=== PATIENT | female | born 1990 | race Caucasian/White ===

== ENCOUNTER 2020-07-03 15:56 | Emergency (ER) | payer SELFPAY ==
[~2020-07-03] VITALS: Ht 165.1 cm; Wt 117.8 kg
[2020-07-03 15:56] VITALS: BP 114/83
--- NOTE | 2020-07-03 17:29 | PHYS DOC ---
Past History Past Medical History: Asthma Past Surgical History: No Surgical History Alcohol Use: Occasionally Adult General Chief Complaint Chief Complaint: DENTAL PROBLEM HPI HPI Patient is a 29-year-old female presents emergency department complaining of sores on her tongue and mouth for the past week. Patient states it does not seem to be getting any better however has not really getting any worse. Patient has not taken any medications for the pain. Patient states she does not have a primary care doctor because she cannot afford insurance. Patient denies any recent fever or chills, denies loss of taste or loss of smell. Patient denies rashes of her skin. Patient denies any recent immunizations. Patient states she is a cigarette smoker however denies drinking alcohol or consumption of illicit drugs. Patient states no one else in her home is having the same symptoms that she. Patient states she has no health history, does not take any medications, has no allergies to medications. Patient states she noticed it started after eating "lots of pineapple a week ago ". Patient denies any other physical complaints or physical concerns. Patient states her last menstrual cycle was a week ago normal duration of flow. Patient denies any STI concerns. Review of Systems Review of Systems 14 body systems of review of systems have been reviewed. See HPI for pertinent positives and negative responses, otherwise all other systems are negative, nonpertinent or noncontributory. Allergies Allergies Allergies Coded Allergies Type Severity Reaction Last Updated Verified No Known Drug Allergies 07/03/20 No Physical Exam Physical Exam Constitutional: Well developed, well nourished, no acute distress, non-toxic appearance. 29-year-old female no apparent distress. HENT: Normocephalic, atraumatic, bilateral external ears normal, oropharynx moist, no oral exudates, nose normal. Oral lesions to tongue roof of mouth and inner lower lip consistent with aphthous stomatitis, no white patches on tongue. Oropharynx moist, pink, no deep tissue infectious process appreciated, no uvular edema, no peritonsillar edema. No laryngeal edema appreciated. Patient speaking in normal voice tones, patient's mentation within normal limits, no dental caries appreciated. Eyes: Patient tracking normally. No obvious conjunctival infectious process or drainage appreciated. Neck: Normal range of motion, patient moving neck normally. No meningismus signs, no nuchal rigidity. Cardiovascular: Distal cap refill less than 2 seconds, no cyanosis appreciated. Lungs & Thorax: Patient is in no respiratory distress. Skin: Warm, dry, no erythema, no rash. Extremities: No tenderness, no cyanosis, no clubbing, ROM intact, no edema. Neurologic: Alert and oriented X 3, normal motor function, normal sensory function, no focal deficits noted. Psychologic: Affect normal, judgement normal, mood normal. Current Patient Data Vital Signs Vital Signs Date Time Temp Pulse Resp B/P (MAP) Pulse Ox O2 Delivery O2 Flow Rate FiO2 07/03/20 15:56 97.9 95 18 114/83 (93) 100 Room Air EKG EKG [] Radiology/Procedures Radiology/Procedures [] Heart Score C/O Chest Pain: No Risk Factors: Risk Factors: DM, Current or recent (<one month) smoker, HTN, HLP, family history of CAD, obesity. Risk Scores: Risk Factors: DM, Current or recent (<one month) smoker, HTN, HLP, family history of CAD, obesity. Course & Med Decision Making Course & Med Decision Making Pertinent Labs and Imaging studies reviewed. (See chart for details) 29-year-old female, vital signs reviewed, presents emergency department concerning oral lesions for the past week. Physical examination consistent with aphthous stomatitis. Unlikely erythema migrans, hairy tongue, lichens planus, herpes labialis, or oral candidiasis. Discussed findings with patient, will prescribe Magic mouthwash. Patient gave verbal understanding of discharge home instructions, follow-up with primary care for ongoing symptoms, return ER precautions or concerns, prescription Magic mouthwash use, patient states she is ready to go home, patient discharged home without incident. Dragon Disclaimer Dragon Disclaimer This electronic medical record was generated, in whole or in part, using a voice recognition dictation system. Departure Departure: Impression: Primary Impression: Stomatitis and mucositis Disposition: HOME / SELF CARE / HOMELESS Condition: GOOD Referrals: PCP,LAURA (PCP) ALBARO BRADSHAW Patient Instructions: Stomatitis Additional Instructions: You are seen in emergency department today for sores in your mouth, this is most likely a stomatitis as we discussed, I am prescribing you Magic mouthwash, please use as prescribed. I have provided you a primary care provider to follow-up with in the event you are unable to secure your own primary care provider for an appointment soon, please follow-up for reexamination of your oral sores. Return to the emergency department for worsening symptoms or other concerns. EMERGENCY DEPARTMENT GENERAL DISCHARGE INSTRUCTIONS Thank you for coming to [facility] (ED) today and trusting us with you care. We trust that you had a positivie experience in our Emergency Department. If you wish to speak to the department management, you may call the director at [phone]. YOUR FOLLOW UP INSTRUCTIONS ARE FOLLOWS: 1. Do you have a private Doctor? If you do not have a private doctor, please ask for a resource list of physicians or clinics that may be able to assist you with follow up care. 2. The Emergency Physician has interpreted your x-rays. The X-Ray specialist will also review them. If there is a change in the findings, you will be notified in 48 hours when at all possible. 3. A lab test or culture has been done, your results will be reviewed and you will be notified if you need a change in treatment. ADDITIONAL INSTRUCTIONS AND INFORMATION: 1. Your care today has been supervised by a physician who is specially trained in emergency care. Many problems require more than one evaluation for a complete diagnosis and treatment. We recommend that you schedule your follow up appointment as recommended to ensure complete treatment of you illness or injury. If you are unable to obtain follow up care and continue to have a problem, or if your condition worsens, we recommend that you return to the ED. 2. We are not able to safely determine your condition over the phone nor are we able to give sound medical advice over the phone. For these safety reasons, if you call for medical advice we will ask you to come to the ED for further evaluation. 3. If you have any questions regarding these discharge instructions please call the ED at [phone]. SAFETY INFORMATION: In the interest of safety, wellness, and injury prevention; we encourage you to wear your sealbelt, if you smoke; quite smoking, and we encourage family to use a protective helmet for bicycling and other sporting events that present an increased risk for head injury. IF YOUR SYMPTOMS WORSEN OR NEW SYMPTOMS DEVELOP, OR YOU HAVE CONCERNS ABOUT YOUR CONDITION; OR IF YOUR CONDITION WORSENS WHILE YOU ARE WAITING FOR YOUR FOLLOW UP APPOINTMENT; EITHER CONTACT YOUR PRIMARY CARE DOCTOR, THE PHYSICIAN WHOSE NAME AND NUMBER YOU WERE GIVEN, OR RETURN TO THE ED IMMEDIATELY. JULIA CATALAN APRN July 03, 2020 17:29
== END 2020-07-03 17:44 | disposition home or self-care (01) ==
LOC: ER 15:56
DX: K12.1 Other forms of stomatitis (principal); K12.30 Oral mucositis (ulcerative), unspecified; F17.200 Nicotine dependence, unspecified, uncomplicated
CPT/HCPCS: 99282-25

== ENCOUNTER 2020-10-21 09:15 | Emergency (ER) | payer SELFPAY ==
[~2020-10-21] VITALS: Ht 165.1 cm; Wt 117.8 kg
[2020-10-21 09:30] VITALS: BP 119/76
--- NOTE | 2020-10-21 09:52 | PHYS DOC ---
Past History Past Medical History: Asthma Past Surgical History: No Surgical History Alcohol Use: Occasionally Adult General Chief Complaint Chief Complaint: ALTERED MENTAL STATUS [facility] HPI Patient is a 30-year-old female presenting for confusion. Reports she drove her child to school and was having a stressful morning. On arrival to school, she had difficulty recalling her son's last name in addition to her son's teachers name. She reports getting more flustered by forgetting simple things like this and when looking at the time on her watch, she was having a hard time comprehending what the time was. Patient reports this caused her to become anxious and tearful. Denies any major changes in health but does admit suffering from a "cold" the past 4 days with copious amounts of nasal congestion, rhinorrhea and a dry nonproductive cough. Has history of ADHD and asthma, denies any medications used on a daily basis, admits to smoking and occasional marijuana use otherwise no alcohol or other recreational drugs. She has no prior history of CVA or intracranial abnormalities. Review of Systems Review of Systems Fourteen body systems of review of systems have been reviewed. See HPI for pertinent positives and negative responses, other martínez all other systems are negative, non-pertinent or non-contributory Allergies Allergies Allergies Coded Allergies Type Severity Reaction Last Updated Verified No Known Drug Allergies 07/03/20 No Physical Exam Physical Exam General: Appears well, non toxic, and comfortable, appears to have upper respiratory tract infection Skin: Warm, dry. Normal for ethnicity. Patient has small plaque psoriasis patches on bilateral extensor surfaces of elbows and scattered plaques present on posterior scalp HEENT: Atraumatic. PERRLA. Moist mucous membranes. Rhinorrhea and postnasal drip present Neck: Trachea midline. Normal ROM. No nuchal rigidity or meningeal signs Respiratory: Normal WOB. CTAB w/o w/r/r. No tachypnea. Cardiovascular: Regular rate and rhythm. Normal peripheral perfusion. No edema. Abdomen: Soft. Non tender. No distension. Back: Normal ROM. Musculoskeletal: No swelling or deformity. Neuro: Alert and oriented x 4. MAEE. GCS 15. Normal gait. CN II-XII intact. Normal strength and sensation. Normal speech. Psych: Tearful affect, anxious mood Current Patient Data Vital Signs Vital Signs Date Time Temp Pulse Resp B/P (MAP) Pulse Ox O2 Delivery O2 Flow Rate FiO2 9/7/21 09:30 98.0 94 16 119/76 98 Room Air Vital Signs Date Time Temp Pulse Resp B/P (MAP) Pulse Ox O2 Delivery O2 Flow Rate FiO2 10/21/20 09:30 98.0 94 16 119/76 98 Room Air Lab Results Laboratory Tests Test 10/21/20 10:09 10/21/20 11:16 10/21/20 12:19 Glucose (Fingerstick) 93 mg/dL Urine Collection Type Unknown Urine Color Yellow Urine Clarity Hazy Urine pH 8.5 Urine Specific Howells 1.020 Urine Protein 30 mg/dl Urine Glucose (UA) Neg mg/dL Urine Ketones (Stick) Neg mg/dL Urine Blood Trace Urine Nitrite Neg Urine Bilirubin Neg Urine Urobilinogen Dipstick 2.0 mg/dL Urine Leukocyte Esterase Mod Urine RBC 1-2 /HPF Urine WBC 20-40 /HPF Urine Squamous Epithelial Cells Many /LPF Urine Bacteria Many /HPF Coronavirus (COVID-19)(PCR) Negative Current Medications Medications (Trade) Dose Ordered Sig/Vishal Route PRN Reason Start Time Stop Time Status Last Admin Dose Admin Nitrofurantoin Macrocrystals (Macrobid) 100 mg 1X ONCE PO 10/21/20 12:15 10/21/20 12:16 DC 10/21/20 12:15 EKG EKG EKG ordered and interpreted by myself at 1016 hours the sinus rhythm at 82 bpm, unremarkable intervals, no axis deviation, no acute ischemic findings, no STEMI Radiology/Procedures Radiology/Procedures EXAM: CT Head without IV contrast CLINICAL HISTORY: CONFUSION COMPARISON: None. TECHNIQUE: Routine CT of the head without contrast. PQRS compliance statement - One or more of the following individualized dose reduction techniques were utilized for this study: 1. Automated exposure control 2. Adjustment of the mA and/or kV according to patient size 3. Use of iterative reconstruction technique FINDINGS: Of note, the entire posterior fossa is not included in the [id number]. Within these limitations: There is no evidence of hemorrhage, mass or extra-axial fluid collection. Benavides-white differentiation is maintained with no evidence of edema. There is no mass effect or shift of the intracranial structures. The ventricles, basilar cisterns and cortical sulci are normal in size and configuration for the patients stated age. The cerebellum and brainstem are unremarkable. The calvarium demonstrates no evidence of fracture or focal lesion. There is normal aeration of the visualized paranasal sinuses and mastoid air cells. The visualized portions of the orbits are normal. IMPRESSION: Of note, the entire posterior fossa is not included in the [id number]. Within these limitations, no evidence for acute intracranial process. Electronically signed by: Isaias Vang MD (10/21/2020 10:24 AM) [id number] Heart Score C/O Chest Pain: No HEART Score for Chest Pain: HEART Score for Chest Pain Response (Comments) Value History Slighlty/Non-Suspicious 0 ECG Normal 0 Age < 45 0 Risk Factors No Risk Factors 0 Total 0 Risk Factors: Risk Factors: DM, Current or recent (<one month) smoker, HTN, HLP, family history of CAD, obesity. Risk Scores: Risk Factors: DM, Current or recent (<one month) smoker, HTN, HLP, family history of CAD, obesity. Course & Med Decision Making Course & Med Decision Making ABCs unremarkable. I disclosed entirety of ER findings and discussed most likely diagnosis of UTI. Given upper respiratory symptoms in an unvaccinated individual, decision was made to swab for COVID-19 with continued supportive care and quarantine instructions other diagnoses were discussed with patient such as stroke versus other intracranial or other potentially life-threatening abnormality but all deemed less likely causes of patient's presentation. Plan of care discussed at length with need for close outpatient follow-up to review today's ER visit stressed. Patient to be started on Macrobid on discharge home. I have also written patient for steroid cream for spot treatment of likely plaque psoriasis, she was advised to follow-up in outpatient setting for further evaluation and definitive management of this skin condition that is nonlife- threatening. Strict return precautions were also discussed at length with good understanding verbalized by patient. Patient voiced understanding and agreement with the plan. Patient knows to come back for repeat evaluation if concerning signs or symptoms present prior to outpatient follow-up. Hemodynamically stable, ambulatory and well-appearing at time of disposition. Dragon Disclaimer Dragon Disclaimer This electronic medical record was generated, in whole or in part, using a voice recognition dictation system. Departure Departure: Impression: Primary Impression: UTI (urinary tract infection) Additional Impressions: Person under investigation for COVID-19 Plaque psoriasis Disposition: HOME / SELF CARE / HOMELESS Condition: STABLE Referrals: PCP,NO (PCP) Additional Instructions: You were seen for a urinary tract infection. Please continue to take the antibiotics as prescribed. You should return to the ED if you develop worsening pain, fever, flank pain, or any other new or concerning symptoms. In addition, you have upper respiratory symptoms that are concerning given current COVID-19 pandemic in fact that you are not vaccinated. You have been tested and was results will pend with an upcoming 24 hours. Please continue to self quarantine at home and isolate yourself from others. Lastly, you likely have plaque psoriasis on bilateral elbows and certain areas of your head. This should resolve/improve with topical steroid creams. It is pertinent that you follow-up with your primary care provider to review if prescribed cream helped or not as you might need to see a biomass technician and/or sas statistical programmer in outpatient setting for further evaluation. If any concerning signs or symptoms present prior to outpatient follow-up please do not hesitate to come back for repeat evaluation Scripts Hydrocortisone (Hydrocortisone) 30 Gm Cream.appl 1 ALDAIR TP BID for PLAQUE PSORIASIS for 7 Days, #30 GM 0 Refills Prov: DANA SANCHEZ DO 10/21/20 Nitrofurantoin Monohyd/M-Cryst (MACROBID 100 MG CAPSULE) 100 Mg Capsule 1 CAP PO BID for UTI for 5 Days, #9 CAP 0 Refills Prov: DANA SANCHEZ DO 10/21/20 Problem Qualifiers DANA SANCHEZ DO Oct 21, 2020 09:52
--- NOTE | 2020-10-21 10:25 | EKG ---
[address] [address] Test Date: 2020-10-21 Test Time: 10:08:00 Pat Name: MACKENZIE PICHARDO Department: Room: Gender: F Staff Therapist: NEIL : 1990 Requested By: DANA SANCHEZ Order Number: [id number] Reading MD: Sanchez Roy MD Measurements Intervals [place] Rate: 82 P: 43 NH: 160 QRS: 51 QRSD: 90 T: 22 QT: 388 QTc: 456 Interpretive Statements SINUS RHYTHM Electronically Signed On 10-23-2020 9:17:09 CDT by Sanchez Roy MD
--- NOTE | 2020-10-21 10:26 | RAD ---
EXAM: CT Head without IV contrast CLINICAL HISTORY: CONFUSION COMPARISON: None. TECHNIQUE: Routine CT of the head without contrast. PQRS compliance statement - One or more of the following individualized dose reduction techniques wer e utilized for this study: 1. Automated exposure control 2. Adjustment of the mA and/or kV according to patient size 3. Use of iterative reconstruction technique FINDINGS: Of note, the entire posterior fossa is not included in the [id number]. Within these limitations: There is no evidence of hemorrhage, mass or extra-axial fluid collection. Benavides-white differentiation is maintained with no evidence of edema. There is no mass effect or shift of the intracranial structures. The ventricles, basilar cisterns and cortical sulci are normal in size and configuration for the ruth ents stated age. The cerebellum and brainstem are unremarkable. The calvarium demonstrates no evidence of fracture or focal lesion. There is normal aeration of the visualized paranasal sinuses and mastoid air cells. The visualized portions of the orbits are normal. IMPRESSION: Of note, the entire posterior fossa is not included in the [id number]. Within these limitations, n o evidence for acute intracranial process. Electronically signed by: Isaias Vang MD (10/21/2020 10:24 AM) [id number]
[2020-10-21 11:57] LABS: BILIRUBIN,URINE NEG (NEG); CLARITY,URINE HAZY; COLOR,URINE YELLOW; GLUCOSE,URINE NEG (NEG); NITRITE,URINE NEG (NEG)
[2020-10-21 11:58] LABS: BACTERIA,URINE MANY /HPF (0-FEW); SQUAMOUS EPITHELIAL CELL,UR MANY /LPF; WBC,URINE 20-40 /HPF (0-4)
[2020-10-21] MEDS ORDERED: NITR100C62 PO (12:13)
[2020-10-21] MEDS ORDERED: HYDR30CR74 TP (12:13)
[2020-10-21] MEDS ORDERED: NITROFURANTOIN MONOHYD/M-CRYST 100 MG CAPSULE. PO ONE (12:15)
== END 2020-10-21 12:23 | disposition home or self-care (01) ==
LOC: ER 09:15
DX: N39.0 Urinary tract infection, site not specified (principal); L40.0 Psoriasis vulgaris; Z20.822 Contact with and (suspected) exposure to COVID-19; J45.909 Unspecified asthma, uncomplicated
CPT/HCPCS: 70450; 81001; 82947; 87086; 93005; 99285; C9803; U0003